=== PATIENT | female | born 1985 | race Caucasian/White ===

== ENCOUNTER 2022-03-08 18:31 | Emergency (ER) | payer BC ==
[~2022-03-08] VITALS: Ht 157.5 cm; Wt 72.6 kg
--- NOTE | 2022-03-08 19:25 | NUR ---
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
[2022-03-08] MEDS ORDERED: IV NS 0.9% 1,000 ML BAG IV ONE (19:30)
[2022-03-08] MEDS ORDERED: ONDANSETRON HCL/PF 4 MG/2 ML VIAL IV ONE (19:30)
[2022-03-08] MEDS ORDERED: IBUPROFEN 600 MG TABLET PO ONE (19:30)
[2022-03-08 19:57] VITALS: BP 132/82
--- NOTE | 2022-03-08 19:58 | NUR ---
RECEIVED REPORT FROM RN GUANAKO. PT "was out drinking last night- woke up around noon and felt nauseous". [id number]. ABLE TO MAKE NEEDS KNOWN. PLACED COMFORTABLY IN BED. VITALS CHECKED
[2022-03-08 19:59] LABS: BASOPHILS % (AUTO) 0.4 % (0.0-2.0); EOSINOPHILS % (AUTO) 0.4 % (0.0-6.0); HEMATOCRIT 38 % (33-45); HEMOGLOBIN 12.3 g/dL (11.5-14.8); LYMPHOCYTES # (AUTO) 1.2 K/uL (0.8-4.8); LYMPHOCYTES % (AUTO) 18.3 % (20.0-44.0); MEAN CORPUSCULAR HGB CONC 33 g/dl (31.0-36.0); MEAN CORPUSCULAR VOLUME 93 fL (82-100); MONOCYTES # (AUTO) 0.4 K/uL (0.1-1.30); MONOCYTES % (AUTO) 6.9 % (2.0-12.0); NEUTROPHILS # (AUTO) 4.7 K/uL (1.8-8.9); PLATELET COUNT (AUTO) 238 K/uL (150-450); RED BLOOD CELL COUNT(AUTO) 4.02 MIL/uL (4.0-5.2); WHITE BLOOD COUNT (AUTO) 6.3 K/uL (4.3-11.0)
--- NOTE | 2022-03-08 19:59 | NUR ---
URINE SPECIMEN SENT TO LAB
--- NOTE | 2022-03-08 19:59 | NUR ---
IV CANNULA G20 INSERTED ON LEFT AC.
[2022-03-08 20:02] LABS: CALCIUM, SERUM 8.9 mg/dL (8.5-10.1); CREATININE 0.9 mg/dL (0.6-1.3); POTASSIUM 3.4 mmol/L (3.5-5.1)
[2022-03-08 20:09] LABS: ALBUMIN 3.9 g/dL (3.4-5.0); BILIRUBIN,DIRECT 0.1 mg/dL (0.0-0.2); BILIRUBIN,TOTAL 0.4 mg/dL (0.2-1.0); TOTAL PROTEIN, SERUM 7.6 g/dL (6.4-8.2)
[2022-03-08] MEDS ORDERED: ONDA4TAB11 PO (21:48)
--- NOTE | 2022-03-08 21:57 | NUR ---
Patient discharged to home in stable condition. Written and verbal after care instructions given. Patient verbalizes understanding of instruction.
[2022-03-08] MEDS ORDERED: MAG HYDROX/AL HYDROX/SIMETH 30 ML UDC PO ONE (22:00)
[2022-03-08] MEDS ORDERED: LIDOCAINE VISCOUS 2% UD 15 ML UDC MM ONE (22:00)
== END 2022-03-08 21:58 | disposition home or self-care (01) ==
LOC: ER 18:55
DX: R11.2 Nausea with vomiting, unspecified (principal); K29.00 Acute gastritis without bleeding; G43.909 Migraine, unspecified, not intractable, without status migrainosus
CPT/HCPCS: 99283; 96374; 96361; 85025; 80048; 83690; 80076; 84703; 36415; J2405; J7030

== ENCOUNTER 2023-02-06 04:29 | Emergency (ER) | payer BC ==
[~2023-02-06] VITALS: Ht 157.5 cm; Wt 72.6 kg
[~2023-02-06 04:29] MED LIST: ONDA4TAB11 PO
[2023-02-06 09:25] VITALS: BP 122/66; TEMP 99; O2SAT 100
== END 2023-02-06 09:27 | disposition home or self-care (01) ==
LOC: ER 04:32
DX: J18.9 Pneumonia, unspecified organism (principal); J45.909 Unspecified asthma, uncomplicated; Z20.822 Contact with and (suspected) exposure to COVID-19; Z79.899 Other long term (current) drug therapy
CPT/HCPCS: 99284; 71045; 87426; 87804 ×2; 87420; C9803